=== PATIENT | female | born 1945 | race Caucasian/White ===

== ENCOUNTER 2021-12-17 18:04 | Observation (INO) | payer MEDICARE, OTHER ==
[~2021-12-17] VITALS: Ht 167.6 cm; Wt 105.0 kg
[2021-12-17 20:08] LABS: BASOPHILS ABSOLUTE AUTO 0.04 K/mm3 (0.00-0.23); BASOPHILS PERCENT AUTO 0 % (0-2); EOSINOPHILS ABSOLUTE AUTO 0.22 K/mm3 (0.00-0.68); EOSINOPHILS PERCENT AUTO 2 % (0-6); Hematocrit 37.4 % (33.0-51.0); Hemoglobin 12.1 g/dL (11.5-16.0); IMMATURE GRAN ABSOLUTE AUTO 0.15 K/mm3 (0.00-0.10); IMMATURE GRAN PERCENT AUTO 1 % (0-1); LYMPHOCYTES ABSOLUTE AUTO 1.41 K/mm3 (0.84-5.20); LYMPHOCYTES PERCENT AUTO 11 % (21-46); MONOCYTES ABSOLUTE AUTO 0.76 K/mm3 (0.16-1.47); MONOCYTES PERCENT AUTO 6 % (4-13); Mean Corpuscular HGB 27.2 pg (26.0-34.0); Mean Corpuscular HGB Conc 32.4 g/dL (31.5-36.5); Mean Corpuscular Volume 84 fL (80-100); Mean Platelet Volume 10.9 fL (9.1-12.4); NEUTROPHILS ABSOLUTE AUTO 10.68 K/mm3 (1.96-9.15); NEUTROPHILS PERCENT AUTO 81 % (41-73); Platelet Count 293 K/mm3 (150-400); RDW Coefficient Variation 14.6 % (11.7-14.2); RDW Standard Deviation 44.3 fL (35.1-46.3); Red Blood Cell Count 4.45 M/mm3 (3.80-5.20); White Blood Cell Count 13.26 K/mm3 (4.00-11.30)
[2021-12-17 20:29] LABS: Albumin, Blood 3.6 g/dL (3.4-5.0); Albumin/Globulin Ratio 1.2 (0.8-1.8); Bilirubin, Total 0.4 mg/dL (0.1-1.0); Calcium, Blood 8.9 mg/dL (8.5-10.1); Creatinine, Blood 0.91 mg/dL (0.40-1.00); Globulin, Blood 3.1 g/dL (2.2-4.0); Potassium, Blood 4.1 mmol/L (3.5-5.5); Total Protein, Blood 6.7 g/dL (6.4-8.2)
[2021-12-17 20:46] LABS: International Normalized Ratio 0.95
[2021-12-18 00:03] LABS: Influenza A, PCR NEGATIVE (NEGATIVE); Influenza B, PCR NEGATIVE (NEGATIVE); Resp Syncytial Virus, PCR NEGATIVE (NEGATIVE); SARS-Cov-2 (COVID-19) PCR, MMC NEGATIVE (NEGATIVE)
--- NOTE | 2021-12-18 02:00 | NUR ---
PT NEW ARRIVAL TO THE FLOOR FROM ER WITH A LEFT ANKLE FX. ARRIVED IN NO DISTRESS, ON RA. A/0X4. LEFT ANKLE IS IN A SPLINT PLACED IN ER. CIRCULATION AND SENSATION IN INTACT. SCATTERED BRUISING AND SCABBING NOTED FROM THE PATIENTS FALL. AWAITING ORTHO CONSULT IN THE AM. PT SETTLED INTO BED, CALL LIGHT IN REACH .
--- NOTE | 2021-12-18 04:10 | NUR ---
PT NEW ADMIT FROM ER. NO ACUTE EVENTS T/O THE NIGHT. THE PT HAS NOT SLEPT SINCE ARRIVING TO THE FLOOR. HAS BEEN NPO SINCE ARRIVING TO THE FLOOR. AWAITING ORTHO CONSULT THIS AM. PAIN IS BEING MANAGED WITH ELEVATION OF THE EXTREMITY AND PRN MEDICATION. PT CURRENTLY RESTING, IN NO DISTRESS. CALL LIGHT IN REACH
[2021-12-18 04:19] LABS: BASOPHILS ABSOLUTE AUTO 0.03 K/mm3 (0.00-0.23); BASOPHILS PERCENT AUTO 0 % (0-2); EOSINOPHILS ABSOLUTE AUTO 0.19 K/mm3 (0.00-0.68); EOSINOPHILS PERCENT AUTO 2 % (0-6); Hematocrit 34.3 % (33.0-51.0); Hemoglobin 10.8 g/dL (11.5-16.0); IMMATURE GRAN ABSOLUTE AUTO 0.08 K/mm3 (0.00-0.10); IMMATURE GRAN PERCENT AUTO 1 % (0-1); LYMPHOCYTES ABSOLUTE AUTO 1.19 K/mm3 (0.84-5.20); LYMPHOCYTES PERCENT AUTO 10 % (21-46); MONOCYTES ABSOLUTE AUTO 0.77 K/mm3 (0.16-1.47); MONOCYTES PERCENT AUTO 7 % (4-13); Mean Corpuscular HGB 26.7 pg (26.0-34.0); Mean Corpuscular HGB Conc 31.5 g/dL (31.5-36.5); Mean Corpuscular Volume 85 fL (80-100); Mean Platelet Volume 10.7 fL (9.1-12.4); NEUTROPHILS ABSOLUTE AUTO 9.49 K/mm3 (1.96-9.15); NEUTROPHILS PERCENT AUTO 81 % (41-73); Platelet Count 267 K/mm3 (150-400); RDW Coefficient Variation 14.7 % (11.7-14.2); RDW Standard Deviation 45.4 fL (35.1-46.3); Red Blood Cell Count 4.05 M/mm3 (3.80-5.20); White Blood Cell Count 11.75 K/mm3 (4.00-11.30)
[2021-12-18 04:40] LABS: Albumin, Blood 3.1 g/dL (3.4-5.0); Bilirubin, Total 0.7 mg/dL (0.1-1.0); Bun/Creatinine Ratio 30.2 (12.0-20.0); Calcium, Blood 8.1 mg/dL (8.5-10.1); Creatinine, Blood 0.73 mg/dL (0.40-1.00); Globulin, Blood 3.1 g/dL (2.2-4.0); Potassium, Blood 3.4 mmol/L (3.5-5.5); Total Protein, Blood 6.2 g/dL (6.4-8.2)
--- NOTE | 2021-12-18 17:17 | NUR ---
DR EVANS AT BEDSIDE. PLAN IS FOR SURGERY THURSDAY, PATIENT TO BE NPO AT MIDNIGHT THURSDAY NIGHT. DR EVANS GAVE ORDERS FOR XRAY OF LEFT WRIST D/T SIGNIFICANT SWELLING. DR. EVANS CHANGED SPLINT ON LEFT ANKLE, PLACED A NEW SPLINT. SKIN APPEARS TO BE IN GOOD CONDITION, BRUISING PRESENT TO INNER ANKLE, NO REDNESS NOTED.
--- NOTE | 2021-12-18 17:19 | NUR ---
SHIFT SUMMARY PATIENT IS S/P FALL WITH LEFT ANKLE FRACTURE. ANKLE REMAINS IN SPLINT WITH SID WRAP, C/D/I. PATIENT REPORTS MODERATE AMOUNT OF PAIN TO LEFT LEG, MEDICATED PER EMAR. TOLERATING PO DIET WELL. INCONTINENT OF URINE AT TIMES. CALLS APPROPRIATELY. WILL REPORT TO ONCOMING RN.
--- NOTE | 2021-12-19 04:33 | NUR ---
SHIFT SUMMARY PT A&OX4, PLEASANT AND COOPERATIVE. MEDICATING FOR PAIN WITH 0.5 DILAUDID WITH EFFECT. L ANKLE IN SPLINT WITH SID WRAP. HAS BEEN INCONTINENT OF URINE, OR FELT THE NEED BUT CAN'T GET THE BEDPAN PLACED IN TIME. TOLERATING PO INTAKE. CALLS APPROPRIATELY, CALL LIGHT WITHIN REACH.
[2021-12-19 04:52] LABS: BASOPHILS ABSOLUTE AUTO 0.06 K/mm3 (0.00-0.23); BASOPHILS PERCENT AUTO 1 % (0-2); EOSINOPHILS ABSOLUTE AUTO 0.41 K/mm3 (0.00-0.68); EOSINOPHILS PERCENT AUTO 4 % (0-6); Hematocrit 33.9 % (33.0-51.0); Hemoglobin 10.9 g/dL (11.5-16.0); IMMATURE GRAN ABSOLUTE AUTO 0.11 K/mm3 (0.00-0.10); IMMATURE GRAN PERCENT AUTO 1 % (0-1); LYMPHOCYTES ABSOLUTE AUTO 1.53 K/mm3 (0.84-5.20); LYMPHOCYTES PERCENT AUTO 15 % (21-46); MONOCYTES ABSOLUTE AUTO 0.94 K/mm3 (0.16-1.47); MONOCYTES PERCENT AUTO 10 % (4-13); Mean Corpuscular HGB 27.5 pg (26.0-34.0); Mean Corpuscular HGB Conc 32.2 g/dL (31.5-36.5); Mean Corpuscular Volume 86 fL (80-100); NEUTROPHILS ABSOLUTE AUTO 6.88 K/mm3 (1.96-9.15); NEUTROPHILS PERCENT AUTO 69 % (41-73); NRBC ABSOLUTE 0.03 K/mm3 (0.00-0.02); NRBC Auto 0.3 /100 WBC (0.0-0.2); RDW Coefficient Variation 14.6 % (11.7-14.2); RDW Standard Deviation 45.9 fL (35.1-46.3); Red Blood Cell Count 3.96 M/mm3 (3.80-5.20); White Blood Cell Count 9.93 K/mm3 (4.00-11.30)
[2021-12-19 04:57] LABS: Mean Platelet Volume 10.8 fL (9.1-12.4); Platelet Count 221 K/mm3 (150-400)
[2021-12-19 05:08] LABS: Alanine Aminotransfer (ALT/SGP 43 U/L (12-78); Albumin, Blood 2.8 g/dL (3.4-5.0); Albumin/Globulin Ratio 0.9 (0.8-1.8); Alk Phos 70 U/L (50-136); Anion Gap 5 mmol/L (6-16); Aspartate Aminotrans (AST/SGOT 18 U/L (12-37); Bilirubin, Total 0.6 mg/dL (0.1-1.0); Blood Urea Nitrogen 13 mg/dL (8-24); CHOL/HDL RATIO 3.8; CO2, Blood 25 mmol/L (21-32); Calcium, Blood 7.9 mg/dL (8.5-10.1); Chloride, Blood 110 mmol/L (98-108); Cholesterol 132 mg/dL (50-200); Creatinine, Blood 0.62 mg/dL (0.40-1.00); Globulin, Blood 3.1 g/dL (2.2-4.0); Glomerular Filtration Rate 91 (60-); Glucose, Blood 145 mg/dL (70-99); HDL Cholesterol 35 mg/dL (>39); LDL/HDL RATIO 2.2; Low Density Lipoprotein Chol 76 mg/dL (0-110); Potassium, Blood 3.9 mmol/L (3.5-5.5); Sodium, Blood 140 mmol/L (136-145); Total Protein, Blood 5.9 g/dL (6.4-8.2); Triglycerides 104 mg/dL (30-160); Very Low Density Lipoprot Chol 20 mg/dL (6-32)
[2021-12-19 12:57] LABS: Percent Saturation 11.5 % (15.0-50.0)
--- NOTE | 2021-12-19 16:22 | NUR ---
SHIFT SUMMARY NO ACUTE CHANGES THIS SHIFT. LEFT ANKLE REMAINS IN SPLINT D/T LEFT ANKLE FRACTURE. SPLINT IS C/D/I, PATIENT ABLE TO WIGGLE TOES, HAS GOOD CAP REFILL, & FULL SENSATION TO LLE. DENIES N/T. PAIN MANAGED PER EMAR. EATING, DRINKING, & VOIDING WELL, INCONT, ATTENDS IN PLACE CHANGED PRN T/O SHIFT. NPO @ 0001, OPLAN FOR SURGERY TOMORROW. CALLS APPROPRIATELY, WILL REPORT TO ONCOMING RN.
[2021-12-20 04:29] LABS: Hematocrit 32.3 % (33.0-51.0); Hemoglobin 10.5 g/dL (11.5-16.0); Mean Corpuscular HGB 27.6 pg (26.0-34.0); Mean Corpuscular HGB Conc 32.5 g/dL (31.5-36.5); Mean Corpuscular Volume 85 fL (80-100); Mean Platelet Volume 10.5 fL (9.1-12.4); Platelet Count 245 K/mm3 (150-400); RDW Coefficient Variation 14.4 % (11.7-14.2); RDW Standard Deviation 44.4 fL (35.1-46.3); Red Blood Cell Count 3.81 M/mm3 (3.80-5.20); White Blood Cell Count 8.55 K/mm3 (4.00-11.30)
[2021-12-20 04:48] LABS: Albumin, Blood 2.7 g/dL (3.4-5.0); Albumin/Globulin Ratio 0.8 (0.8-1.8); Bilirubin, Total 0.5 mg/dL (0.1-1.0); Bun/Creatinine Ratio 17.9 (12.0-20.0); Calcium, Blood 8.1 mg/dL (8.5-10.1); Creatinine, Blood 0.62 mg/dL (0.40-1.00); Globulin, Blood 3.3 g/dL (2.2-4.0); Potassium, Blood 4.1 mmol/L (3.5-5.5)
--- NOTE | 2021-12-20 04:54 | NUR ---
SHIFT SUMMARY PT A&OX4, PLEASANT AND COOPERATIVE. VSS. MEDICATING WITH 0.5 DILAUDID WITH EFFECT. HAS BEEN NPO SINCE 0000. INCONTINENT OF URINE, ATTENDS IN PLACE. LLE ELEVATED ON PILLOWS. PLACED A NEW IV IN LEFT FOREARM. CALLS APPROPRIATELY, CALL LIGHT WITHIN REACH.
--- NOTE | 2021-12-20 10:29 | NUR ---
THE PATIENT WAS BROUGHT TO DAY SURGERY FOR HER PROCEDURE.
--- NOTE | 2021-12-20 15:06 | NUR ---
PATIENT CAME BACK FROM PACU TODAY AT 1455. POD 0 LEFT ORIF PATIENT IS SLIGHTLY DROWSY BUT IS EASILY AROUSABLE WITH TOUCH. SLIGHTLY ELEVATED BP BUT OTHERWISE HAS WNL VS AND IS ON RA. PATIENT DENIES PAIN AT THIS TIME. LEFT FOOT HAS A SPLINT AND SID WRAP THAT IS C/D/I. SHE WAS ABLE TO MOVE FINGERS AND TOES WHEN ASKED. SHE TOLERATED A SMALL AMOUNT OF WATER BY MOUTH. PATIENT IS TO BE NON WT BEARING ON THE LEFT FOOT. PATIENT IS LAYING IN BED WITH CALL LIGHT IN REACH.
--- NOTE | 2021-12-20 16:26 | NUR ---
SHIFT SUMMARY: POD 0 LEFT ANKLE ORIF PATIENT IS MORE ALERT/AWAKE AND IS A&OX4. PATIENT HAS SLIGHT INCREASE IN BP BUT OTHERWISE VS ARE WNL AND IS ON RA. PAIN IS MANAGED WITH IV DILAUDID AND SHE NOW HAS PO OXY ADDED TO HER EMAR. AWAITING FOR PATIENT TO HAVE SOMETHING IN HER STOMACH TO GIVE HER THE PO PAIN MED AND PATIENT STATED "I'M GOING TO WAIT TO EAT DINNER". LEFT FOOT IS IN A SPLINT WITH SID WRAP THAT IS C/D/I. PATIENT DENIES NUMBNESS AND TINGLING. SHE CAN MOVE HER FINGERS AND TOES WHEN ASKED. SHE IS VOIDING AND IS PASSING SMALL AMOUNTS OF GAS. PATIENT IS TO BE NON WT BEARING ON THE LEFT FOOT WITH AMBULATION. CALLS APPROPRIATELY. CALL LIGHT WITHIN REACH.
--- NOTE | 2021-12-21 18:58 | NUR ---
SHIFT SUMMARY PT POD #1 FOR ORIF TO L ANKLE. PT HAD A HARD TIME WORKING WITH PHYSICAL THERAPY DUE TO PAIN. PAIN MEDICATIONS ADJUSTED AND PAIN NOW MANAGED WITH GOOD EFFECT PER EMR. VSS. PT A/O X3; PLEASANT AND COOPERATIVE WITH CARE.
[2021-12-22 04:18] LABS: Hematocrit 32.1 % (33.0-51.0); Hemoglobin 10.3 g/dL (11.5-16.0); Mean Corpuscular HGB 27.3 pg (26.0-34.0); Mean Corpuscular HGB Conc 32.1 g/dL (31.5-36.5); Mean Corpuscular Volume 85 fL (80-100); Mean Platelet Volume 11.1 fL (9.1-12.4); Platelet Count 279 K/mm3 (150-400); RDW Coefficient Variation 14.6 % (11.7-14.2); RDW Standard Deviation 44.9 fL (35.1-46.3); Red Blood Cell Count 3.77 M/mm3 (3.80-5.20)
[2021-12-22 04:47] LABS: Albumin, Blood 2.6 g/dL (3.4-5.0); Albumin/Globulin Ratio 0.7 (0.8-1.8); Bilirubin, Total 0.7 mg/dL (0.1-1.0); Bun/Creatinine Ratio 23.6 (12.0-20.0); Calcium, Blood 8.6 mg/dL (8.5-10.1); Creatinine, Blood 0.72 mg/dL (0.40-1.00); Globulin, Blood 3.5 g/dL (2.2-4.0); Potassium, Blood 4.1 mmol/L (3.5-5.5); Total Protein, Blood 6.1 g/dL (6.4-8.2)
--- NOTE | 2021-12-22 08:04 | NUR ---
SUMMARY PT VERB PAIN MEDS HAVE BEEN EFFECTIVE, REPORTS SLEPT WELL.
--- NOTE | 2021-12-22 17:05 | NUR ---
SHIFT SUMMARY PATIENT ALERT AND ORIENTED. TOLERATING REGULAR DIET AND LIQUIDS. VOIDS INCONTINENT IN ATTENDS. MEDICATED FOR PAIN PER EMAR. LEFT ANKLE IN SPLINT AND SID WRAP. NWB. WIGGLES TOES, WARM, CAP REFILL LESS THAN 3 SECONDS. 2 PERSON ASSIST TO TRANSFER PIVOT FROM BED TO CHAIR AND BACK WITH GAIT BELT AND FWW. PLAN FOR SNF ON DISCHARGE.
--- NOTE | 2021-12-23 04:12 | NUR ---
SHIFT SUMMARY A/O X4 THROUGHOUT SHIFT. POD3 ORIF OF L ANKLE. SID AND SPLINT IN PLACE, C/D/I. REMAINED BEDREST THROUGHOUT THE NIGHT. INCONTINENT OF URINE, ATTENDS IN PLACE, CHANGED PRN. PAIN MANAGED W/ PO PAIN MEDICATIONS PER EMAR. TOLERATING PO INTAKE, NO N/V REPORTED. VITAL SIGNS STABLE. WILL CONTINUE TO MONITOR AND REPORT TO ONCOMING RN.
[2021-12-23 06:17] LABS: Hematocrit 32.9 % (33.0-51.0); Hemoglobin 10.3 g/dL (11.5-16.0); Mean Corpuscular HGB Conc 31.3 g/dL (31.5-36.5); Mean Corpuscular Volume 86 fL (80-100); Mean Platelet Volume 11.1 fL (9.1-12.4); Platelet Count 267 K/mm3 (150-400); RDW Coefficient Variation 14.6 % (11.7-14.2); RDW Standard Deviation 46.2 fL (35.1-46.3); Red Blood Cell Count 3.81 M/mm3 (3.80-5.20)
[2021-12-23 06:36] LABS: Albumin, Blood 2.7 g/dL (3.4-5.0); Albumin/Globulin Ratio 0.7 (0.8-1.8); Bilirubin, Total 0.6 mg/dL (0.1-1.0); Bun/Creatinine Ratio 29.2 (12.0-20.0); Calcium, Blood 8.5 mg/dL (8.5-10.1); Creatinine, Blood 0.69 mg/dL (0.40-1.00); Globulin, Blood 3.7 g/dL (2.2-4.0); Potassium, Blood 3.8 mmol/L (3.5-5.5); Total Protein, Blood 6.4 g/dL (6.4-8.2)
--- NOTE | 2021-12-23 15:24 | NUR ---
12/23/21 1524 Sherlyn Buckner VERIFICATIONS: EDIT CHART.
--- NOTE | 2021-12-23 17:46 | NUR ---
SHIFT SUMMARY PT WORKED w/ BOTH PT & OT. CONT's TO RATE PAIN HIGH. LLE HAS BEEN ELEVATED FOR MOST OF SHIFT. INCONT OF URINE.
--- NOTE | 2021-12-24 04:52 | NUR ---
SHIFT SUMMARY: A&O, VERY PLEASANT. PT RESTED COMFORTABLY T/O THE SHIFT. PAIN WAS WELL MANAGED PER EMAR ORDERS. PT IS EATING, DRINKING, AND VOIDING. INCONTINENT OF URINE, ATTENDS IN PLACE. PT REPORTS FULL SENSATION IN LLE. 2 PERSON ASSIST USING FWW/GAIT BELT. DENIES N/T ON EXTREMITIES AT THIS TIME. CALL LIGHT REMAINS IN REACH AND THE PT IS RESTING AT THIS TIME.
--- NOTE | 2021-12-24 16:22 | NUR ---
SHIFT SUMMARY POD4 L ANKLE ORIF, A/OX4, VSS, TOLERATING PO, PAIN MANAGED PER EMAR THOUGH PT REPORTS MORE PAIN TODAY. PT AWAITING DC TO SNF. NO ACUTE EVENTS THIS SHIFT, CALL LIGHT IN REACH, WILL CTM AND REPORT TO ONCOMING NOC RN.
[2021-12-25 04:20] LABS: Hematocrit 31.7 % (33.0-51.0); Hemoglobin 10.2 g/dL (11.5-16.0); Mean Corpuscular HGB 27.3 pg (26.0-34.0); Mean Corpuscular HGB Conc 32.2 g/dL (31.5-36.5); Mean Corpuscular Volume 85 fL (80-100); Mean Platelet Volume 11.2 fL (9.1-12.4); Platelet Count 325 K/mm3 (150-400); RDW Coefficient Variation 14.8 % (11.7-14.2); RDW Standard Deviation 45.1 fL (35.1-46.3); Red Blood Cell Count 3.73 M/mm3 (3.80-5.20); White Blood Cell Count 10.03 K/mm3 (4.00-11.30)
--- NOTE | 2021-12-25 04:28 | NUR ---
SHIFT SUMMARY: PT WAS ABLE TO REST COMFORTABLY FOR THE MAJORITY OF THE SHIFT. PT STILL C/O PAIN TO HER L LEG. PER EMAR ORDERS, PAIN WAS WELL MANAGED. ATTENDS REMAIN IN PLACE. TOLERATING PO FLUIDS AND FOOD WELL. EATING, DRINKING, VOIDING. ENCOURAGED REPOSITIONING. CALL LIGHT IN REACH. PT RESTING AT THIS TIME.
[2021-12-25 04:35] LABS: Albumin, Blood 2.6 g/dL (3.4-5.0); Albumin/Globulin Ratio 0.8 (0.8-1.8); Bilirubin, Total 0.7 mg/dL (0.1-1.0); Bun/Creatinine Ratio 19.5 (12.0-20.0); Calcium, Blood 8.8 mg/dL (8.5-10.1); Creatinine, Blood 0.77 mg/dL (0.40-1.00); Globulin, Blood 3.4 g/dL (2.2-4.0)
--- NOTE | 2021-12-25 17:49 | NUR ---
SHIFT SUMMARY PT A&OX4, VSS/RA, VASQUEZ PO, VOIDING WELL, BM TODAY. PAIN MANAGED WELL WITH OXY, TYLENOL AND TORADOL. POD5 ORIF LLE SPLINT/SID WRAP CDI. AMB 2 PP MAX ASSIST WITH FWW/GB, NWB - PT ABLE TO STAND/HOP 2-3 STEPS. PLAN FOR SNF TRANSFER TOMORROW. WILL REPORT TO ONCOMING NOC SHYAM.
--- NOTE | 2021-12-26 03:25 | NUR ---
SUMMARY NO NEW ISSUES NOTED. PT DISCOMFORT TX WELL PER EMAR. PT HAS VOIDED T/OUT SHIFT. PT HAS NOT SLEPT MUCH. PT REPORTS NOT FEELING TIRED. PT CURRENTLY AWAKE AND IN NO DISTRESS. CALL LIGHT IN REACH.
[2021-12-26 09:29] LABS: SARS-Cov-2 (COVID-19) PCR, MMC NEGATIVE (NEGATIVE)
--- NOTE | 2021-12-26 12:34 | NUR ---
REPORT CALLED TO WILLIAM AT [facility] [phone], INFORMED PT HAS [facility] 01/15 @ [id number].
== END 2021-12-26 13:50 ==
LOC: ER 18:04 → ERHOLD 23:27 → SURS 23:27
PROVIDERS: Emergency Medicine; Internal Medicine; Podiatrist Foot & Ankle Surgery; ADMIT Internal Medicine
PROC: 0QSH04Z Reposition Left Tibia with Internal Fixation Device, Open Approach (ICD-10-PCS; principal; 2021-12-20 11:30)
PROC: 0QSK04Z Reposition Left Fibula with Internal Fixation Device, Open Approach (ICD-10-PCS; principal; 2021-12-20 11:30)
DX: S82.852A Displaced trimalleolar fracture of left lower leg, initial encounter for closed fracture (principal); W18.30XA Fall on same level, unspecified, initial encounter; E87.6 Hypokalemia; I10 Essential (primary) hypertension; D64.9 Anemia, unspecified; E66.9 Obesity, unspecified; Z20.822 Contact with and (suspected) exposure to COVID-19; Z68.35 Body mass index [BMI] 35.0-35.9, adult
CPT/HCPCS: 0241U; 36415; 71046; 73110; 73610; 73700; 80053; 80061; 82728; 83540; 83550; 84443; 85025; 85027; 85610; 93005; 93010; 96375; 96376; 97110; 97110-CQ; 97116; 97161; 97166; 97530; 97530-CO; 97530-CQ; 97535; 97535-CO; A9270; C1713; G0378; J0690; J1100; J1170; J1650; J1885; J2250; J2270; J2370; J2405; J2704; J2795; J2916; J3010; J7030; J7120; U0004